=== PATIENT | male | born 1990 | race American Indian/Alaskan Native ===

== ENCOUNTER 2021-04-01 02:59 | Emergency (ER) | payer SELFPAY ==
[2021-04-01] MEDS ORDERED: SODIUM CHLORIDE 0.9% 1000 ML 1,000 ML IV ONE (05:08)
[2021-04-01] MEDS ORDERED: diphenhydrAMINE 25 MG CAP PO ONE (05:14)
[2021-04-01] MEDS ORDERED: ACETAMINOPHEN 500 MG TAB PO ONE (05:14)
--- NOTE | 2021-04-01 05:41 | Event Note ---
ED Screening Note Date of service: 04/01/21 Time: 05:39 ED Screening Note: Patient a 30-year-old -Turkmen male with history of sickle cell anemia presents for left flank pain and body aches x3 days. Patient states this is his typical sickle cell flare for him. He denies shortness of breath there is no chest pain no nausea vomiting no fever chills. There has been no cough or wheezing. States usual treatment is hydrocodone. There is no acute distress noted at this time. Patient denies history of renal stones there is been no hematuria noted frequency urgency or dysuria noted. This initial assessment/diagnostic orders/clinical plan/treatment(s) is/are subject to change based on patients health status, clinical progression and re- assessment by fellow clinical providers in the ED. Further treatment and workup at subsequent clinical providers discretion. Patient/guardian urged not to elope from the ED as their condition may be serious if not clinically assessed and managed. Initial orders include: cbc, cmp, retic count, CXR, NS, Tylenol, Benadryl
--- NOTE | 2021-04-01 05:42 | XRay Report ---
CHEST 2 VIEWS INDICATION / CLINICAL INFORMATION: pain. Sickle cell crisis COMPARISON: None available. FINDINGS: SUPPORT DEVICES: None. HEART / MEDIASTINUM: No significant abnormality. LUNGS / PLEURA: No significant pulmonary or pleural abnormality. No pneumothorax. ADDITIONAL FINDINGS: Osseous changes of sickle cell with H-type vertebral bodies IMPRESSION: 1. No acute findings. 2. Sickle cell osteopathy Signer Name: Naif Watkins MD Signed: 04/01/2021 5:38 AM Workstation Name: [id number]
[2021-04-01 06:11] LABS: Hematocrit 25.2 % (35.5-45.6); Hemoglobin 8.4 gm/dl (11.8-15.2); Mean Corpuscular HGB Conc 33 % (32-34); Mean Corpuscular Volume 70 fl (84-94); Platelet Count 357 K/mm3 (140-440); Red Cell Distribution Width 19.6 % (13.2-15.2)
[2021-04-01 06:34] LABS: Alanine Aminotransferase 9 units/L (7-56); Albumin 4.7 g/dL (3.9-5); BUN/Creatinine Ratio 19; Blood Urea Nitrogen 13 mg/dL (9-20); Calcium 9.3 mg/dL (8.4-10.2); Hemolysis Index 8
[2021-04-01] MEDS ORDERED: KETOROLAC 30 MG/1 ML INJ IV ONE (08:09)
[2021-04-01] MEDS ORDERED: MORPHINE 2 MG/1 ML INJ IV ONE (08:09)
--- NOTE | 2021-04-01 08:10 | Emergency Department Report ---
ED General Adult HPI - General Chief complaint: Sickle Cell Crisis Stated complaint: SICKLE CELL PAIN Time Seen by Provider: 04/01/21 08:02 Source: patient Mode of arrival: Ambulatory Limitations: No Limitations - History of Present Illness Initial comments: 30-year-old male with a history of sickle cell disease presents to the ER today with complaints of flareup of his sickle cell pain to his right lower back. Patient states that his pain flared up last night. He states that this pain is typical of his sickle cell flares. He does have Percocet fives at home but he states that it was not helping. He denies any associated abdominal pain, nausea, vomiting, diarrhea, chest pain, shortness of breath, lower extremity swelling or calf pain, fever or chills or UTI symptoms. He states that the last time he had to be admitted and get a blood transfusion was last 2019. He reports no other symptoms at this time. MD Complaint: Sickle cell pain flare/right low back pain -: Gradual, Last night Severity scale (0 -10): 10 - Related Data Allergies Allergy/AdvReac Type Severity Reaction Status Date / Time No Known Allergies Allergy Unverified 04/01/21 03:46 ED Review of Systems ROS: Stated complaint: SICKLE CELL PAIN Other details as noted in HPI Comment: All other systems reviewed and negative Constitutional: denies: chills, fever Eyes: denies: eye pain, eye discharge, vision change ENT: denies: ear pain, throat pain, dental pain, hearing loss, epistaxis, congestion Respiratory: denies: cough, shortness of breath, SOB with exertion, SOB at rest, wheezing Cardiovascular: denies: chest pain, palpitations Endocrine: no symptoms reported Gastrointestinal: denies: abdominal pain, nausea, diarrhea, constipation, hematemesis, melena, hematochezia Genitourinary: denies: urgency, dysuria, frequency, hematuria, discharge, testicular pain, testicular mass Musculoskeletal: back pain. denies: joint swelling, arthralgia, myalgia Skin: denies: rash, lesions, change in color, change in hair/nails, pruritus Neurological: denies: headache, weakness, numbness, paresthesias, confusion, abnormal gait, vertigo Psychiatric: denies: anxiety, depression, auditory hallucinations, visual hallucinations, homicidal thoughts, suicidal thoughts Hematological/Lymphatic: denies: easy bleeding, easy bruising, swollen glands ED Past Medical Hx - Past Medical History Previous Medical History?: Yes Hx Sickle Cell Disease: Yes - Surgical History Past Surgical History?: No ED Physical Exam - General Limitations: No Limitations General appearance: alert, in no apparent distress - Head Head exam: Present: atraumatic, normocephalic, normal inspection - Eye Eye exam: Present: normal appearance, PERRL, EOMI Pupils: Present: normal accommodation - Neck Neck exam: Present: normal inspection, full ROM. Absent: meningismus - Respiratory Respiratory exam: Present: normal lung sounds bilaterally. Absent: respiratory distress, wheezes, rales, rhonchi - Cardiovascular Cardiovascular Exam: Present: regular rate, normal rhythm, normal heart sounds - GI/Abdominal GI/Abdominal exam: Present: soft. Absent: distended, tenderness, guarding, rebound - Extremities Exam Extremities exam: Present: normal inspection, full ROM. Absent: calf tenderness - Back Exam Back exam: Present: normal inspection, full ROM, paraspinal tenderness (Mild tenderness to palpation to the right paraspinal muscles of the right lower lumbar area). Absent: vertebral tenderness - Neurological Exam Neurological exam: Present: alert, oriented X3, CN II-XII intact, normal gait - Psychiatric Psychiatric exam: Present: normal affect, normal mood - Skin Skin exam: Present: intact ED Course Vital Signs 04/01/21 04/01/21 04/01/21 03:42 08:08 08:11 Temperature 97.4 F L Pulse Rate 95 H 72 79 Respiratory 18 16 16 Rate Blood Pressure 126/73 122/72 Blood Pressure 122/72 [Left] O2 Sat by Pulse 100 100 100 Oximetry 04/01/21 08:19 Temperature Pulse Rate Respiratory 16 Rate Blood Pressure Blood Pressure [Left] O2 Sat by Pulse Oximetry ED Medical Decision Making - Lab Data Result diagrams: 04/01/21 05:56 04/01/21 05:56 - Medical Decision Making Patient arrived in the ER 5 hours ago prior to me seeing him. Screening labs were placed. CBC reviewed and shows anemia with a hemoglobin of 8.4, reticulocyte count 4.9 . Patient states that the hemoglobin of 8 is typical for him. CMP reviewed and unremarkable. Patient was given IV fluids, Benadryl and Tylenol on arrival. He states that his pain is currently 5 out of 10, but he can manage his pain better if we can get him to 2. Morphine 2 mg and IV Toradol. 0920: Patient currently sleeping. He reports feeling much better after IV morphine and Toradol. He is not toxic or ill-appearing and he does not appear to be in any significant distress. Patient is neurologically intact and has a normal gait. He does not appear septic. His vital signs are stable for there is no indication for any admission to the hospital at this time. Patient will be discharged home, and he was instructed to follow-up with his maintenance construction helper at [place] and continue his regular Percocet that he has at home for pain. Patient expressed understanding of all instructions and agree with plan. Patient stable at time of discharge. Critical care attestation.: If time is entered above; I have spent that time in minutes in the direct care of this critically ill patient, excluding procedure time. ED Disposition Clinical Impression: Sickle-cell disease with pain, Sickle cell anemia Disposition: 01 HOME / SELF CARE / HOMELESS Is pt being admited?: No Does the pt Need Aspirin: No Condition: Stable Instructions: Sickle Cell Anemia, Pediatric Additional Instructions: I recommend that you take your regular Percocet as prescribed by your maintenance construction helper. Follow-up with your maintenance construction helper next week. Drink lots of fluids. Return to the ER if your symptoms worsens or changes in any way. Referrals: PRIMARY CARE, [Primary Care Provider] - 3-5 Days Forms: Work/School Release Form(ED) Time of Disposition: 09:19 Print Language: OCCITAN
[2021-04-01 08:11] VITALS: BP 122/72
[2021-04-01 18:11] LABS: Band Neutrophils # (Manual) 0.2 K/mm3; Myelocytes # (Manual) 0.2 K/mm3; Platelet Estimate Consistent w Auto; Promyelocytes # (Manual) 0.6 K/mm3; Total Cells Counted 100
== END 2021-04-01 09:29 | disposition home or self-care (01) ==
LOC: ED 02:59
DX: D57.1 Sickle-cell disease without crisis (principal)
CPT/HCPCS: 36415; 71046; 80053; 85007; 85025; 85045; 96361; 96374; 96375; 99284; J1885; J2270; J7030

== ENCOUNTER 2021-04-10 02:09 | Emergency (ER) | payer SELFPAY ==
[2021-04-10] MEDS ORDERED: KETOROLAC 60 MG/2 ML INJ IM ONE (03:49)
[2021-04-10] MEDS ORDERED: HYDROcodone/ACETAMINOPHEN 5-325 MG TAB PO ONE (03:49)
[2021-04-10 04:00] LABS: Hematocrit 23.7 % (35.5-45.6); Hemoglobin 7.9 gm/dl (11.8-15.2); Mean Corpuscular HGB Conc 34 % (32-34); Platelet Count 257 K/mm3 (140-440); Red Blood Count 3.39 M/mm3 (3.65-5.03)
[2021-04-10 04:04] LABS: Mean Corpuscular Volume 70 fl (84-94); Red Cell Distribution Width 20.1 % (13.2-15.2)
--- NOTE | 2021-04-10 04:12 | Emergency Department Report ---
ED Extremity Problem HPI - General Chief complaint: Sickle Cell Crisis Stated complaint: SICKLE CELL/RT KNEE PAIN Time Seen by Provider: 04/10/21 03:32 Source: patient Mode of arrival: Ambulatory Limitations: No Limitations - History of Present Illness Initial comments: 30-year-old male with a past medical history of beta thalassemia presents to the hospital with complaints of nontraumatic right knee pain that started several hours prior to arrival. Patient has had acute pain crisis in the right knee in the past. Patient follows up with the [facility] but recently moved to this area. He was seen here on April 01 for back pain. No reports of fever. Patient able to ambulate and bear weight. Patient is very drowsy stating that he sleeps to cope with the pain and he smokes a lot of marijuana to help with the pain. He states he does not currently have any narcotic pain medication - Related Data Previous Rx's Medication Instructions Recorded Last Taken Type Ibuprofen [Motrin] 800 mg PO Q8HR PRN #30 tablet 04/10/21 Unknown Rx oxyCODONE /ACETAMINOPHEN [Percocet 1 tab PO Q6HR PRN #14 tablet 04/10/21 Unknown Rx 5/325] Allergies Allergy/AdvReac Type Severity Reaction Status Date / Time No Known Allergies Allergy Verified 04/10/21 04:16 ED Review of Systems ROS: Stated complaint: SICKLE CELL/RT KNEE PAIN Other details as noted in HPI Comment: All other systems reviewed and negative ED Past Medical Hx - Past Medical History Previous Medical History?: No Hx Sickle Cell Disease: Yes - Surgical History Past Surgical History?: No - Social History Smoking Status: Never Smoker Substance Use Type: Marijuana - Medications Home Medications: Home Medications Medication Instructions Recorded Confirmed Last Taken Type Ibuprofen [Motrin] 800 mg PO Q8HR PRN #30 tablet 04/10/21 Unknown Rx oxyCODONE /ACETAMINOPHEN [Percocet 1 tab PO Q6HR PRN #14 tablet 04/10/21 Unknown Rx 5/325] ED Physical Exam - General Limitations: No Limitations - Other Other exam information: General: No acute distress Head: Atraumatic Eyes: normal appearance ENT: Moist mucous membranes Neck: Normal appearance, no midline tenderness Chest: Clear to auscultation bilaterally CV: Regular rate and rhythm Abdomen: Soft, normal bowel sounds, nontender, nondistended, no rebound or guarding Back: Normal inspection Extremity: Mild warmth to right knee with swelling. Tenderness at the patella tendon. Full range of motion. Able to bear weight. No skin erythema Neuro: Drowsy but arousable O x 3, no facial asymmetry, speech clear, no gross motor sensory deficit Psych: Appropriate behavior Skin: No rash ED Course Vital Signs 04/10/21 04/10/21 02:52 04:34 Temperature 97.9 F 98.1 F Pulse Rate 69 73 Respiratory 14 15 Rate Blood Pressure 135/43 132/48 [Left] O2 Sat by Pulse 99 99 Oximetry - Reevaluation(s) Reevaluation #1: 04/10/21 05:56 Patient feeling better and ready to go home with prescription ED Medical Decision Making - Lab Data Result diagrams: 04/10/21 03:27 Lab Results 04/10/21 Range/Units 03:27 WBC 11.3 H (4.5-11.0) K/mm3 RBC 3.39 L (3.65-5.03) M/mm3 Hgb 7.9 L (11.8-15.2) gm/dl Hct 23.7 L (35.5-45.6) % MCV 70 L (84-94) fl MCH 23 L (28-32) pg MCHC 34 (32-34) % RDW 20.1 H (13.2-15.2) % Plt Count 257 (140-440) K/mm3 Add Manual Diff Complete Total Counted 100 Seg Neuts % (Manual) 63.0 (40.0-70.0) % Lymphocytes % (Manual) 22.0 (13.4-35.0) % Monocytes % (Manual) 14.0 H (0.0-7.3) % Eosinophils % (Manual) 1.0 (0.0-4.3) % Nucleated RBC % Not Reportable Seg Neutrophils # Man 7.1 (1.8-7.7) K/mm3 Band Neutrophils # 0.0 K/mm3 Lymphocytes # (Manual) 2.5 (1.2-5.4) K/mm3 Abs React Lymphs (Man) 0.0 K/mm3 Monocytes # (Manual) 1.6 H (0.0-0.8) K/mm3 Eosinophils # (Manual) 0.1 (0.0-0.4) K/mm3 Basophils # (Manual) 0.0 (0.0-0.1) K/mm3 Metamyelocytes # 0.0 K/mm3 Myelocytes # 0.0 K/mm3 Promyelocytes # 0.0 K/mm3 Blast Cells # 0.0 K/mm3 WBC Morphology Not Reportable Hypersegmented Neuts Not Reportable Hyposegmented Neuts Not Reportable Hypogranular Neuts Not Reportable Smudge Cells Not Reportable Toxic Granulation Not Reportable Toxic Vacuolation Not Reportable Dohle Bodies Not Reportable Pelger-Huet Anomaly Not Reportable Rishabh Rods Not Reportable Platelet Estimate Consistent w auto Clumped Platelets Not Reportable Plt Clumps, EDTA Not Reportable Large Platelets Not Reportable Giant Platelets Not Reportable Platelet Satelliting Not Reportable Plt Morphology Comment Not Reportable RBC Morphology Not Reportable Dimorphic RBCs Not Reportable Polychromasia Not Reportable Hypochromasia Not Reportable Poikilocytosis Not Reportable Anisocytosis 1+ Microcytosis Not Reportable Macrocytosis Not Reportable Spherocytes Not Reportable Pappenheimer Bodies Not Reportable Sickle Cells Not Reportable Target Cells Not Reportable Tear Drop Cells Not Reportable Ovalocytes Not Reportable Helmet Cells Not Reportable Merlos-Garey Bodies Not Reportable Mercedita Rings Not Reportable [place] Cells Not Reportable Bite Cells Not Reportable Crenated Cell Not Reportable Elliptocytes Not Reportable Acanthocytes (Spur) Not Reportable Rouleaux Not Reportable Hemoglobin C Crystals Not Reportable Schistocytes Not Reportable Malaria parasites Not Reportable Percent Retic 7.37 H (0.78-2.58) % Karan Bodies Not Reportable Hem Pathologist Commnt No - Medical Decision Making 30-year-old male presents to the hospital right knee pain secondary to sickle cell crisis. Received [place] and IV fluids with improvement in symptoms. Will be discharged with p.o. medications. Mild edema noted. Elevated reticulocyte count. [place] prescription drug monitoring site reviewed. Patient received Percocet 5/325mg 6 tablets on March 15. It appears that this is a reoccurring monthly prescription prescribed by a Jose CÁRDENAS. Critical Care Time: No Critical care attestation.: If time is entered above; I have spent that time in minutes in the direct care of this critically ill patient, excluding procedure time. ED Disposition Clinical Impression: Right knee pain, Sickle cell crisis Disposition: HOME / SELF CARE / HOMELESS Is pt being admited?: No Does the pt Need Aspirin: No Condition: Stable Instructions: Hemolytic Anemia, Acute Knee Pain, Adult Additional Instructions: Take the medication as prescribed. Follow-up with your doctor or doctor/clinic provided. Return if symptoms worsen as indicated by your discharge instructions. Prescriptions: Ibuprofen [Motrin] 800 mg PO Q8HR PRN #30 tablet PRN Reason: Pain , Severe (7-10) oxyCODONE /ACETAMINOPHEN [Percocet 5/325] 1 tab PO Q6HR PRN #14 tablet PRN Reason: Pain Referrals: Your, process developer [Other] - 3-5 Days (At [place]) Time of Disposition: 05:58
[2021-04-10 04:35] VITALS: BP 132/48
[2021-04-10] MEDS ORDERED: D5W/0.2% NACL 1,000 ML IV SCH (05:00)
[2021-04-10 05:49] LABS: Total Cells Counted 100
[2021-04-10 05:50] LABS: Anisocytosis 1+; Platelet Estimate Consistent w Auto
== END 2021-04-10 06:29 | disposition home or self-care (01) ==
LOC: ED 02:09
DX: M25.561 Pain in right knee (principal); D57.00 Hb-SS disease with crisis, unspecified; F12.90 Cannabis use, unspecified, uncomplicated; Z79.899 Other long term (current) drug therapy
CPT/HCPCS: 36415; 85007; 85025; 85045; 85660; 96360; 96372; 99283; J1885

== ENCOUNTER 2021-04-17 02:31 | Emergency (ER) | payer SELFPAY ==
[2021-04-17 02:41] VITALS: BP 121/61
[2021-04-17] MEDS ORDERED: SULFAMETHOXAZOLE/TRIMETHOPRIM 800/160MG DS TAB PO ONE (02:57)
[2021-04-17] MEDS ORDERED: IBUPROFEN 600 MG TAB PO ONE (02:57)
[2021-04-17] MEDS ORDERED: predniSONE 50 MG TAB PO ONE (02:57)
--- NOTE | 2021-04-17 03:12 | Emergency Department Report ---
ED Extremity Problem HPI - General Chief complaint: Extremity Injury, Lower Stated complaint: LT ANKLE PAIN Source: patient Mode of arrival: Ambulatory Limitations: No Limitations - History of Present Illness Initial comments: Patient is a 30-year-old -Sammarinese male with a history of sickle cell disease who presents to the ED with complaint of acute onset persistent nont raumatic left ankle pain for the last 1 week. Patient states that he walks a lot on his feet and that the pain and swelling have worsened in the last 3 days. Patient states that he just left [facility] in [facility] a few hours ago and was given a prescription for pain as well as oral steroids but he has not been unable to fill his medications. Patient denies traumatic injur y, headache, chest pain, shortness of breath, fever, chills, traumatic injury, dizziness, numbness and tingling or weakness of left ankle MD Complaint: extremity pain (Left ankle pain and swelling), extremity swelling (Left ankle pain and swelling), joint swelling (Left ankle pain and swelling) -: Sudden, days(s) (3) Location: left, lower extremity (Left ankle pain and swelling) History of Same: Yes -: Yes myalgia, Yes arthralgia (Left ankle pain and swelling) Radiation: distal Severity scale (0 -10): 5 Quality: aching, sharp Consistency: constant Improves with: nothing Worsens with: weight bearing, walking, palpation Associated Symptoms: denies other symptoms, arthralgias (Left ankle pain and swelling). denies: chest pain, shortness of breath - Related Data Previous Rx's Medication Instructions Recorded Last Taken Type Ibuprofen [Motrin] 800 mg PO Q8HR PRN #30 tablet 04/10/21 Unknown Rx oxyCODONE /ACETAMINOPHEN [Percocet 1 tab PO Q6HR PRN #14 tablet 04/10/21 Unknown Rx 5/325] Allergies Allergy/AdvReac Type Severity Reaction Status Date / Time No Known Allergies Allergy Verified 04/10/21 04:16 ED Review of Systems ROS: Stated complaint: LT ANKLE PAIN Other details as noted in HPI Constitutional: denies: chills, fever Eyes: denies: eye pain, eye discharge, vision change ENT: denies: ear pain, throat pain Respiratory: denies: cough, shortness of breath, wheezing Cardiovascular: denies: chest pain, palpitations Endocrine: no symptoms reported Gastrointestinal: denies: abdominal pain, nausea, diarrhea Genitourinary: denies: urgency, dysuria Musculoskeletal: joint swelling (Left ankle pain and swelling), arthralgia (Left ankle pain and swelling). denies: back pain Skin: denies: rash, lesions Neurological: denies: headache, weakness, paresthesias Psychiatric: denies: anxiety, depression Hematological/Lymphatic: denies: easy bleeding, easy bruising ED Past Medical Hx - Past Medical History Hx Sickle Cell Disease: Yes - Surgical History Past Surgical History?: No - Social History Smoking Status: Never Smoker Substance Use Type: Marijuana - Medications Home Medications: Home Medications Medication Instructions Recorded Confirmed Last Taken Type Ibuprofen [Motrin] 800 mg PO Q8HR PRN #30 tablet 04/10/21 Unknown Rx oxyCODONE /ACETAMINOPHEN [Percocet 1 tab PO Q6HR PRN #14 tablet 04/10/21 Unknown Rx 5/325] ED Physical Exam - General Limitations: No Limitations General appearance: alert, in no apparent distress - Head Head exam: Present: atraumatic, normocephalic, normal inspection - Eye Eye exam: Present: normal appearance, PERRL, EOMI Pupils: Present: normal accommodation - ENT ENT exam: Present: normal exam, normal orophraynx, mucous membranes moist, TM's normal bilaterally, normal external ear exam - Neck Neck exam: Present: normal inspection, full ROM - Respiratory Respiratory exam: Present: normal lung sounds bilaterally. Absent: respiratory distress, wheezes, rales, chest wall tenderness, decreased breath sounds - Cardiovascular Cardiovascular Exam: Present: regular rate, normal rhythm, normal heart sounds. Absent: systolic murmur, diastolic murmur, rubs, gallop - GI/Abdominal GI/Abdominal exam: Present: soft, normal bowel sounds. Absent: tenderness, guarding, rebound, hyperactive bowel sounds, hypoactive bowel sounds, organomegaly - Rectal Rectal exam: Present: deferred - Extremities Exam Extremities exam: Present: normal inspection, tenderness (Palpable left ankle tenderness with mild swelling and limited range of motion due to pain), normal capillary refill, joint swelling. Absent: full ROM, calf tenderness - Back Exam Back exam: Present: normal inspection, full ROM. Absent: tenderness, CVA tenderness (L), muscle spasm, paraspinal tenderness - Neurological Exam Neurological exam: Present: alert, oriented X3, CN II-XII intact, normal gait, reflexes normal - Psychiatric Psychiatric exam: Present: normal affect, normal mood, anxious - Skin Skin exam: Present: warm, dry, intact, normal color. Absent: rash ED Course Vital Signs 04/17/21 02:37 Temperature 98.0 F Pulse Rate 89 Respiratory 15 Rate Blood Pressure 121/61 O2 Sat by Pulse 100 Oximetry ED Medical Decision Making - Medical Decision Making This is a 30-year-old -Sammarinese male with a history of sickle cell dis ease who presents to the ED with complaint of acute onset persistent nontraumatic left ankle pain for the last 1 week. Patient states that he walks a lot on his feet and that the pain and swelling have worsened in the last 3 days. Patient states that he just left [facility] in [facility] a few hours ago and was given a prescription for pain as well as oral steroids but he has not been unable to fill his medications. In the ED, patient is alert and oriented x3 and is not in any distress but appears to be in pain. Patient was treated for pain in the ED and was discharged home and advised to fill the prescriptions that were previously written. Patient was advised to follow-up with his primary care physician in 7 to 10 days for reevaluation. Patient was advised to return to the ED immediately if symptoms get worse. - Differential Diagnosis Muscle strain; degenerative joint disease; muscle spasm; gout Critical care attestation.: If time is entered above; I have spent that time in minutes in the direct care of this critically ill patient, excluding procedure time. ED Disposition Clinical Impression: Left ankle tendonitis Muscle strain of left ankle Qualifiers: Encounter type: initial encounter Qualified Code(s): S96.912A - Strain of unspecified muscle and tendon at ankle and foot level, left foot, initial encounter Disposition: 01 HOME / SELF CARE / HOMELESS Is pt being admited?: No Does the pt Need Aspirin: No Condition: Stable Instructions: Muscle Strain, [id number], Muscle Strain Additional Instructions: Take the medication drop previously written by another hospital. Follow-up with your primary care physician in 7 to 10 days for reevaluation. Return to the ED immediately if symptoms get worse. Referrals: [facility] [Provider Group] - 3-5 Days Time of Disposition: 03:41 Print Language: MICRONESIAN
== END 2021-04-17 03:55 | disposition home or self-care (01) ==
LOC: ED 02:31
DX: S96.912A Strain of unspecified muscle and tendon at ankle and foot level, left foot, initial encounter (principal); M77.9 Enthesopathy, unspecified; F12.90 Cannabis use, unspecified, uncomplicated; Z79.899 Other long term (current) drug therapy; X58.XXXA Exposure to other specified factors, initial encounter; Y93.89 Activity, other specified; Y92.89 Other specified places as the place of occurrence of the external cause; Y99.8 Other external cause status
CPT/HCPCS: 99282; J7512

== ENCOUNTER 2021-04-18 02:57 | Emergency (ER) | payer SELFPAY ==
[2021-04-18 03:06] VITALS: BP 133/70
== END 2021-04-18 07:00 | disposition left against medical advice (07) ==
LOC: ED 02:57
DX: M25.572 Pain in left ankle and joints of left foot (principal); Z53.21 Procedure and treatment not carried out due to patient leaving prior to being seen by health care provider

== ENCOUNTER 2021-07-28 08:06 | Emergency (ER) | payer SELFPAY ==
[2021-07-28 09:34] VITALS: BP 144/35
[2021-07-28] MEDS ORDERED: KETOROLAC 60 MG/2 ML INJ IM ONE (10:26)
--- NOTE | 2021-07-28 10:26 | Emergency Department Report ---
ED General Adult HPI - General Chief complaint: Extremity Injury, Lower Stated complaint: RT LOWER LEG PAIN Time Seen by Provider: 07/28/21 10:12 Source: patient, family Mode of arrival: Ambulatory Limitations: No Limitations - History of Present Illness Initial comments: 30-year-old -[place] male patient presents with complaints of sudden onset of right medial ankle pain starting yesterday. Patient states he has had this same issue in the past in the same ankle and was told he may have gout. He reports at that time he took ibuprofen and his symptoms resolved. He has not tried any OTC medications for symptoms today. Past medical history includes sickle cell, however he states this is not his normal sickle cell pain. Patient also denies any fever/chills/sweats, urinary symptoms, or skin changes. No injury to the ankle per patient. He rates his current pain as an 8/10 in severity - Related Data Previous Rx's Medication Instructions Recorded Last Taken Type Ibuprofen [Motrin] 800 mg PO Q8HR PRN #30 tablet 04/10/21 Unknown Rx oxyCODONE /ACETAMINOPHEN [Percocet 1 tab PO Q6HR PRN #14 tablet 04/10/21 Unknown Rx 5/325] Naproxen 500 mg PO BID PRN #6 tab 07/28/21 Unknown Rx Prednisone [predniSONE 10 mg 10 mg PO .TAPER #1 pack 07/28/21 Unknown Rx (6-Day Pack, 21 Tabs)] Allergies Allergy/AdvReac Type Severity Reaction Status Date / Time No Known Allergies Allergy Verified 07/28/21 09:29 ED Review of Systems ROS: Stated complaint: RT LOWER LEG PAIN Other details as noted in HPI Constitutional: denies: chills, fever, malaise Musculoskeletal: joint swelling, arthralgia Skin: denies: change in color Neurological: denies: numbness, paresthesias ED Past Medical Hx - Past Medical History Hx Sickle Cell Disease: Yes - Social History Smoking Status: Never Smoker Substance Use Type: Marijuana - Medications Home Medications: Home Medications Medication Instructions Recorded Confirmed Last Taken Type Ibuprofen [Motrin] 800 mg PO Q8HR PRN #30 tablet 04/10/21 Unknown Rx oxyCODONE /ACETAMINOPHEN [Percocet 1 tab PO Q6HR PRN #14 tablet 04/10/21 Unknown Rx 5/325] Naproxen 500 mg PO BID PRN #6 tab 07/28/21 Unknown Rx Prednisone [predniSONE 10 mg 10 mg PO .TAPER #1 pack 07/28/21 Unknown Rx (6-Day Pack, 21 Tabs)] ED Physical Exam - General Limitations: No Limitations General appearance: alert, in no apparent distress - Head Head exam: Present: atraumatic, normocephalic - Respiratory Respiratory exam: Absent: respiratory distress - Cardiovascular Cardiovascular Exam: Present: regular rate - Extremities Exam Extremities exam: Present: joint swelling (Mild swelling noted to the right medial ankle without overlying skin changes or redness; there is minimal warmth; patient has normal range of motion of the ankle; tenderness to palpation is noted to light touch to deep palpation of the medial ankle; normal pedal pulse noted) - Neurological Exam Neurological exam: Present: alert, oriented X3 - Psychiatric Psychiatric exam: Present: normal affect, normal mood - Skin Skin exam: Present: warm, dry, intact, normal color. Absent: rash ED Course Vital Signs 07/28/21 09:32 Temperature 98.3 F Pulse Rate 69 Respiratory 18 Rate Blood Pressure 144/35 O2 Sat by Pulse 100 Oximetry ED Medical Decision Making - Medical Decision Making 30-year-old -[place] male patient presents with complaints of sudden onset of right medial ankle pain starting yesterday. Patient states he has had this same issue in the past in the same ankle and was told he may have gout. He reports at that time he took ibuprofen and his symptoms resolved. He has not tried any OTC medications for symptoms today. Past medical history includes sickle cell, however he states this is not his normal sickle cell pain. Patient also denies any fever/chills/sweats, urinary symptoms, or skin changes. No injury to the ankle per patient. He rates his current pain as an 8/10 in severity Given patient's history, will cover for gout. Recommend he follows up with primary care in 3 to 5 days for further evaluation. He is otherwise well- appearing, his vitals are within normal limits, he is stable for discharge home. Discussed in detail signs and symptoms that should prompt immediate return to the ED with patient who verbalized understanding Critical care attestation.: If time is entered above; I have spent that time in minutes in the direct care of this critically ill patient, excluding procedure time. ED Disposition Clinical Impression: Gout of right ankle Disposition: 01 HOME / SELF CARE / HOMELESS Is pt being admited?: No Condition: Stable Instructions: Low-Purine Eating Plan Additional Instructions: What is gout? Gout is a form of arthritis. It can cause pain and swelling in the joints. At first, it tends to affect only 1 joint most frequently the big toe. It happens in people who have too much uric acid in the blood. Uric acid is a chemical that is produced when the body breaks down certain foods. Uric acid can form sharp needle-like crystals that build up in the joints and cause pain. Uric acid crystals can also form inside the tubes that carry urine from the kidneys to the bladder. These crystals can turn into "kidney stones" that can cause pain and problems with the flow of urine. What are the symptoms of gout? People with gout get sudden "flares" or attacks of severe pain, most often the big toe, ankle, or knee. Often the joint also turns red and swells. Usually, only 1 joint is affected, but some people have pain in more than 1 joint. Gout flares tend to happen more often during the night. The pain from gout can be extreme. The pain and swelling are worst at the beginning of a gout flare. The symptoms then get better within a few days to weeks. It is not clear how the body "turns off" a gout flare. Is there a test for gout? Yes. To test you for gout, your doctor or nurse can take a sample of fluid from the joint that is in pain. If they find typical gout crystals in the fluid, then you have gout. Even without checking fluid from a joint, the doctor or nurse might still strongly suspect gout if: ?You have had pain and swelling in 1 joint, especially the joint at the base of the big toe ?Your symptoms completely go away between flares, at least when you first start having them ?Your blood tests show high levels of uric acid How is gout treated? There are a few medicines that can reduce the pain and swelling caused by gout. When you find one that works for you, make sure to keep it on hand all the time. That way you can take it as soon you feel a flare starting. Gout medicines work best if you take them as soon as symptoms start. The medicines used to treat gout flares include: ?NSAIDs This is a large group of medicines that includes ibuprofen (sample bra nd names: Advil, Motrin) and indomethacin (brand name: Indocin). NSAIDs might not be safe for people with kidney or liver disease, or for people who have bleeding problems. ?Colchicine This medicine helps with gout but it can also cause diarrhea, nausea, vomiting, and stomach pain. ?Steroids Steroids can reduce swelling and pain. These steroids are not the kind that athletes take to build up muscle. Steroids can be taken as pills or as shots. Are there medicines to prevent gout flares? Yes, there are medicines that can reduce the chances of having future gout [place]. Most people who have repeated or severe flares of gout need to take these medicines. In general, they all work by reducing the amount of uric acid in the blood. Examples of these medicines include allopurinol (brand names: Aloprim, Zyloprim), febuxostat (brand name: Uloric), and probenecid. People with severe gout can also get a medicine called pegloticase (brand name: Krystexxa), which is given through a vein. This medicine can cause an allergic reaction in some people. If you take one of the medicines to prevent gout, your doctor or nurse will want to make sure you use it safely. They might also want to check that your uric acid level gets low enough to dissolve the gout crystals. Allopurinol, febuxostat, and probenecid can actually increase gout flares when you first start taking them. To prevent these flares, your doctor or nurse might suggest that you take low doses of colchicine when you start the medicines. This will give the gout crystals time to dissolve, and that will put a stop to the flares over time. If you do have a gout flare, it's important to keep taking your daily medicines normally. Your doctor will check your uric acid levels regularly. This is to make sure the medicines are working and you are taking the right dose. Can I do anything on my own to prevent gout flares? Yes. If you are overweight, losing weight can help relieve gout. It's not clear that following a specific diet plan will help with gout symptoms. But eating a balanced diet can help improve your overall health. It can also help you lose weight, if you are overweight. In general, a healthy diet includes plenty of fruits, vegetables, whole grains, and low-fat dairy products. It's also important to drink plenty of water, and try not to get dehydrated. You should limit sugary drinks and alcohol, which can make gout flares worse. Some people with gout also have other health problems, such as heart disease, high blood pressure, kidney disease, or obesity. If you have any of these issues, it's important to work with your doctor to manage them. This can help improve your overall health and might also help with your gout. Prescriptions: Naproxen 500 mg PO BID PRN #6 tab PRN Reason: pain Prednisone [predniSONE 10 mg (6-Day Pack, 21 Tabs)] 10 mg PO .TAPER #1 pack Referrals: [facility] [Provider Group] - 3-5 Days Forms: Work/School Release Form(ED)
== END 2021-07-28 11:17 | disposition home or self-care (01) ==
LOC: ED 08:06
DX: M10.071 Idiopathic gout, right ankle and foot (principal)
CPT/HCPCS: 96372; 99282; J1885